=== PATIENT | male | born 1960 | race Caucasian/White ===

== ENCOUNTER 2017-02-27 09:38 | Day surgery (SDC) | payer OTHER ==
[~2017-02-27] VITALS: Ht 182.9 cm; Wt 95.2 kg
[~2017-02-27 09:38] MED LIST: CHOL5000 PO; EXCEDRIN ES; HYDR-3740 PO; Lactated Ringer's 1,000 ML IV ONE; MULT-1074 PO; NAPR220C11 PO
[2017-02-27] MEDS ORDERED: Propofol 10,000 mCg/mL 20 mL Inj ONE (09:39)
[2017-02-27 10:06] VITALS: BP 159/95; PULSE 84; RESP 16; O2SAT 95
[2017-02-27] MEDS ORDERED: Lactated Ringer's 1,000 ML IV SCH (10:49)
[2017-02-27] MEDS ORDERED: MetoCLOpramide 5 mg/mL 2 mL Inj IVPUSH PRN (10:50)
[2017-02-27] MEDS ORDERED: Ondansetron 2 mg/mL 2 mL Inj IVPUSH PRN (10:50)
[2017-02-27 11:18] VITALS: BP 125/69; PULSE 77; RESP 16; O2SAT 94
[2017-02-27 11:28] VITALS: BP 133/72; PULSE 60; RESP 16; O2SAT 97
[2017-02-27 11:38] VITALS: BP 142/78; PULSE 62; RESP 16; O2SAT 99
--- NOTE | 2017-02-27 16:43 | PCM.HPANE ---
Patient Data Surgeon Admitting Provider: Attending Provider:Kamlesh Hernandez MD Primary Care Physician:Mica Gordon MD Other Provider:Lindsay De La Vegaingham Anesthesia Reason for Visit Colon Ca Screening Ht/WT & BMI Height (Feet): 6 Height (Inches): 0 Weight (Kilograms): 95.25 Body Mass Index 28.00 Allergies Coded Allergies: No Known Allergies (Unverified , 02/24/17) Past Anesthesia History Anesthesia History: Denies:: Abnormal Airway, Anesthesia Reactions, Difficult Intubation, Fam Anesthesia Reaction, Fam Malignant Hypertherm, Malignant Hyperthermia Diabetes History Hx Diabetes?: No MRSA MRSA: No Medications Reported Medications Cholecalciferol (Vitamin D3) (Vitamin D3)5,000 Unit Capsule5,000 Unit PO 02/24/17 Hydrocodone-Acetaminophen 10-325 mg 1 Each Tablet1 Tablet PO Q6H PRN For Pain Ref 0 02/24/17 [excedrin es] No Conflict Check 02/24/17 Multivits,Ca,Min/Iron/FA/Lycop (Centrum Men's Tablet)8 Mg Iron-200 Mcg-600 Mcg Tablet1 Each PO DAILY 02/24/17 Naproxen Sodium (Aleve)220 Mg [id number] Mg PO DIRECTED PRN For Pain 02/24/17 History History of ENT Problems?: No HEENT History: Denies:: Abnormal Airway Cataracts Difficult Intubation Dysphagia Glaucoma Hearing Problem Sinus Problem TMJ Denture Type: None Teeth Condition: Within Normal Limits Hx of Heart Problems?: Yes Cardiovascular History: Positive for:: Hypertension Denies:: AICD Abdominal Aortic Aneurism Atrial Fibrillation Cardiac Surgery Chest Pain Congestive Heart Failure Coronary Artery Disease Edema Heart Murmur Irregular Heartbeat Pacemaker Peripheral Vascular Rheumatic Fever Thrombophlebitis Valvular Heart Disease Hx of Respiratory Problem?: No Respiratory History: Denies:: Asthma COPD Chest Surgery Cough Dyspnea Emphysema Hemoptysis Oxygen Administration Pneumonia Pulmonary Embolism Tuberculosis Use of C-PAP Machine Use of Inhalers / NEBS Hx Neurologic Problems?: No Neurological History: Denies:: Alzheimer's Disease CVA Dementia Dizziness Headaches Multiple Sclerosis Parkinson's Disease Peripheral Neuropathy Seizures TIA Hx of GI Problems?: No Gastrointestinal History: Denies:: Cirrhosis Diverticulitis Gall Bladder Disease Gastroesphageal Reflux Gastrointestinal Bleeding Heartburn Hepatitis Hiatal Hernia Liver Disease Rectal Bleeding Hx of Problems?: No Genitourinary History: Denies:: HX of Hemodialysis Kidney Stones Urinary Tract Infection HX of Peritoneal Dialysis: No Male Hx: Denies:: Prostate Problems Scrotal Mass Testicular Surgery Skin History: Denies:: History Skin Disorders? Pressure Ulcers Hx Musculoskeletal Problems?: No Musculoskeletal History: Denies:: Back Injury Degenerative Joint Fibromyalgia Joint Replacement Musculoskeletal Trauma Myasthenia Gravis Osteoarthritis Rheumatoid Arthritis Systemic Lupus Hx of Psycho/Social Problems?: No Psycho Social History: Denies:: Anxiety Bipolar Disorder Hx Depression Suicide Attempt Hx Surgeries?: Yes (HIP, HAND, SKULL, ) Hx Any Other Health Problems?: Yes Hx Diabetes: No Hx Alcohol Use: No Stop/Bang Treated for Sleep Apnea?: No Do You Have a CPAP Machine?: No S-Snoring: Do You Snore Loudly: No T-Tired: feel tired, fatigued: No O-Obsered: Observed not breath: No P-Blood Pressure: treated: Yes B- Body Mass Index > 35 kg/m2: No A- Age over 50: Yes N- Neck Large Circumference: No G- Gender Male: Yes TIA Total Score: 3 Risk Assessment Category Category 1A: Patient has history of documented sleep apnea, and HAS NOT received any narcotic, sedative or anesthesia administration during this stay. Category 1B: Patient has history of documented sleep apnea, and HAS received any narcotic , sedative or anesthesia administration during this stay Category 2: Patient has SUSPECTED Obstructive Sleep Apnea, and HAS received any narcotic , sedative or anesthesia administration during this stay. Category 3: Patient has SUSPECTED Obstructive Sleep Apnea and HAS NOT received narcotic, sedative or anesthesia administration during this stay. Category 4: Outpatient in Procedural Areas with known sleep apnea or who screen positive for High Risk via the STOP/BANG questionnaire. Exam Exam Vital Signs Vital Signs Date Time Temp Pulse Resp B/P Pulse Ox O2 Delivery O2 Flow Rate FiO2 02/27/17 10:06 84 16 159/95 95 Room Air General Appearance: Alert, Oriented X3, Cooperative, No Acute Distress HEENT/AIRWAY: MP 2, Neck Movement (FROM), Mouth Opening (3 FBMO) Lungs: Clear to Auscultation, Normal Air Movement Heart: Exam Unremarkable, Regular Rate/Rhythm, No Murmurs/Rubs/Gallops Plan Impression Patient chart reviewed, patient interviewed and anesthestic plan with risks, benefits, and alternatives discussed, and informed consent obtained. NPO per Anesth. Guidelines: Yes ASA Physical Status: ASA2 Mod Systemic Disease Anesthetic Plan: GA, MAC Bene/Risks/Altern/Consents: Yes HP Complete Prior to Induction: Yes Michel Avila MD Feb 27, 2017 10:49
--- NOTE | 2017-02-27 16:44 | PCM.ANEP1 ---
Post Anesthesia PACU Phase 1 Assessment Vital Signs Vital Signs Date Time Temp Pulse Resp B/P Pulse Ox O2 Delivery O2 Flow Rate FiO2 02/27/17 11:38 62 16 142/78 99 Room Air 02/27/17 11:28 60 16 133/72 97 Room Air 02/27/17 11:18 77 16 125/69 94 Room Air 02/27/17 10:06 84 16 159/95 95 Room Air Anesthetic Administered: GA Level of Alertness: Awake, talking UREÑA's with Equal Strength: Yes Pain: No Nausea or Vomiting: No CV Function & Hydration Stable: No Airway Device: N/A Oxygen Delivery: Room Air Lungs: Clear to Auscultation, Normal Air Movement Dermatome Level: Full Sensation PACU Phase 2 Assessment Complications: No Follow up Care: N/A Patient Instructions Provided: N/A Michel Avila MD Feb 27, 2017 16:44
--- NOTE | 2017-02-27 20:39 | ENDO ---
[address] [address] ENDOSCOPY PROCEDURE PATIENT: ALEJANDRO CONROY : 1960 MR#: [id number] ADMIT: 02/27/2017 JOB ID: [id number] DATE OF SERVICE: 02/27/2017 PRIMARY PROVIDER: Mica Gordon MD. PROCEDURE: Colonoscopy with hot snare polypectomy. INDICATIONS: A 56-year-old male who reports for colon cancer screening. EQUIPMENT: [employer] H [employer] [place]. SEDATION: Monitored anesthesia as provided by Dr. Michel Avila. COMPLICATIONS: None identified. BOWEL PREPARATION: Fair. PROCEDURE IN DETAIL: After the risks and benefits were explained, written and verbal informed consent was obtained. The patient was brought into the endoscopy suite and placed into the left lateral decubitus position. Sedation was achieved using the above-stated medications with the addition of oxygen via nasal cannula. A digital rectal examination was accomplished. No significant pathology appreciated. The scope was introduced into the rectum and advanced under direct visualization to the level of the cecum, as identified by the appendiceal orifice and ileocecal valve. The scope was slowly withdrawn to carefully examine the mucosa for any defects or lesions. Retroflexed views were avoided in the rectum. Multiple direct views were made through the dentate line for exclusion of pathology. The colon was decompressed. The scope removed from the patient who tolerated the procedure well. FINDINGS: The patient had diverticulosis throughout the left colon. In the descending, there was an approximately 6-7 mm sessile polyp removed with hot snare. In the rectum, there were a few classic hyperplastic-appearing polyps. One of the larger ones measuring about 6-7 mm was removed with hot snare. No other pathology was appreciated throughout apart from moderate internal hemorrhoids noted on direct views. ENDOSCOPIC DIAGNOSES: 1. Diverticulosis. 2. Colon polyps. 3. Hemorrhoids. RECOMMENDATIONS: 1. Await histopathology. 2. As long as the rectal polyp removed is returned hyperplastic only, repeat colonoscopy will be suggested for five years' time.
--- NOTE | 2017-03-02 13:11 | PATH ---
SURGICAL PATHOLOGY Attending Physician:Servando Harris CASE STATUS: Signed Out PATIENT NAME: ALEJANDRO CONROY PID: [id number] : 1960 DATE COLLECTED:02/27/2017 21:18 SPECIMEN: 1: Colon, Polyp 2: Rectum, Biopsy CLINICAL HISTORY: 1). DESCENDING POLYP X1 2). RECTAL POLYPS X1 FINAL DIAGNOSIS: 1. Descending Colon, Polyp, Biopsy: Tubular adenoma; negative for high grade dysplasia. 2. Rectum, Polyp, Biopsy: Hyperplastic polyp. ICD10: K63.5 GROSS DESCRIPTION: 1. Received in formalin, labeled with the patient's name and "descend" is one fragment of leigh soft tissue measuring 0.2 x 0.2 x 0.2 cm. The fragment is totally submitted in cassette 1A. 2. Received in formalin, labeled with the patient's name and "rectal" is one fragment of leigh soft tissue measuring 0.3 x 0.2 x 0.2 cm. The fragment is totally submitted in cassette 2A. ([id number]) ICD-9 CODES: CPT CODES: 1: 80715 2: 37082 Electronically Signed Out Melany Tolentino MD [facility] [address], [place] [address] Technical component performed at [facility], [facility] [address], [place], [address]
== END 2017-02-27 23:59 | disposition home or self-care (01) ==
LOC: END 09:38
PROVIDERS: ATTEND Internal Medicine Gastroenterology
DX: Z12.11 Encounter for screening for malignant neoplasm of colon (principal); D12.4 Benign neoplasm of descending colon; K62.1 Rectal polyp; K57.30 Diverticulosis of large intestine without perforation or abscess without bleeding; K64.8 Other hemorrhoids; F41.9 Anxiety disorder, unspecified; F12.90 Cannabis use, unspecified, uncomplicated; F17.210 Nicotine dependence, cigarettes, uncomplicated
CPT/HCPCS: 45385; J7120

== ENCOUNTER → 2017-04-10 | Day surgery (SDC) | payer OTHER ==
[2017-04-10] VITALS (11 sets, daily range): BP systolic 128–163; BP diastolic 60–89; PULSE 45–65; RESP 8–18; O2SAT 93–99
[~2017-04-10] VITALS: Ht 182.9 cm; Wt 90.6 kg
[~2017-04-10] MED LIST changes: +Acetaminophen IV 1,000 mg IV ONE; +Atropine 0.4 mg/mL Inj IVPUSH PRN; +Bupivacaine Liposome 1.3% 20 mL Inj INFILTRATE ONE; +CeFAZolin 2 Gm/50 mL D5W Duplex Bag IV ONE; +CeFAZolin 2 Gm/50 mL D5W IV Premix IV ONE; +EPHEDrine Sulfate 50 mg/mL Inj IVPUSH PRN; +HYDROmorphone 1 mg/mL Inj IVPUSH PRN; +Labetalol 5 mg/mL 20 mL Inj IV PRN; +Lactated Ringer's 1,000 ML IV SCH; +Lactated Ringer's 500 ML IV PRN; +MetoCLOpramide 5 mg/mL 2 mL Inj IVPUSH PRN; +Ondansetron 2 mg/mL 2 mL Inj IVPUSH PRN; +Ondansetron 2 mg/mL 2 mL Inj ONE; +Phenylephrine 10,000 mCg/mL Inj IVPUSH PRN; +Phenylephrine/NS 100 mCg/mL 10 mL Syringe IVPUSH ONE; +Propofol 10,000 mCg/mL 20 mL Inj ONE; +fentaNYL-PF 50 mCg/mL 2 mL Inj ONE
--- NOTE | 2017-04-10 11:49 | PCM.HPANE ---
Patient Data Date of Service: Apr 10, 2017 Surgeon Admitting Provider: Attending Provider:Audrey Davies MD Primary Care Physician:Mica Gordon MD Other Provider:Len De La Vega Anesthesia Reason for Visit Left Renal Coloc Ht/WT & BMI Height (Feet): 6 Height (Inches): 0 Weight (Kilograms): 90.6 Body Mass Index 27.00 Allergies Uncoded Allergies: GIL PEPPER/JALAPENO (Allergy, Severe, VOMITING, 04/10/17) Past Anesthesia History Anesthesia History: Denies:: Abnormal Airway, Anesthesia Reactions, Difficult Intubation, Fam Anesthesia Reaction, Fam Malignant Hypertherm, Malignant Hyperthermia Diabetes History Hx Diabetes?: No MRSA MRSA: No Medications Hypertension Medication: No Home Meds Incl Beta Tye: No Reported Medications Cholecalciferol (Vitamin D3) (Vitamin D3)5,000 Unit Capsule5,000 Unit PO 02/24/17 Hydrocodone-Acetaminophen 10-325 mg 1 Each Tablet1 Tablet PO Q6H PRN For Pain Ref 0 02/24/17 [excedrin es] No Conflict Check 02/24/17 Multivits,Ca,Min/Iron/FA/Lycop (Centrum Men's Tablet)8 Mg Iron-200 Mcg-600 Mcg Tablet1 Each PO DAILY 02/24/17 Naproxen Sodium (Aleve)220 Mg [id number] Mg PO DIRECTED PRN For Pain 02/24/17 History History of ENT Problems?: No HEENT History: Denies:: Abnormal Airway Cataracts Difficult Intubation Dysphagia Hearing Problem Sinus Problem TMJ Denture Type: None Teeth Condition: Tooth Decay Missing Teeth Hx of Heart Problems?: Yes (reports chest tightness with moderate excercise ( e.g. running a mile) that has been present his whole life, htn) Cardiovascular History: Denies:: AICD Abdominal Aortic Aneurism Atrial Fibrillation Cardiac Surgery Chest Pain Congestive Heart Failure Edema Heart Murmur Hypertension Irregular Heartbeat Pacemaker Rheumatic Fever Thrombophlebitis Valvular Heart Disease Hx of Respiratory Problem?: Yes (smoker, 1ppd) Respiratory History: Denies:: Asthma COPD Chest Surgery Cough Dyspnea Emphysema Hemoptysis Oxygen Administration Pneumonia Pulmonary Embolism Tuberculosis Use of C-PAP Machine Hx Neurologic Problems?: No Neurological History: Denies:: Alzheimer's Disease CVA Dementia Dizziness Headaches Multiple Sclerosis Parkinson's Disease Seizures Hx of GI Problems?: No Hx of Problems?: Yes Genitourinary History: Positive for:: Kidney Stones (left stone current admission problem) Denies:: HX of Hemodialysis Urinary Tract Infection HX of Peritoneal Dialysis: No Male Hx: Denies:: Prostate Problems Scrotal Mass Testicular Surgery Skin History: Denies:: History Skin Disorders? Pressure Ulcers Hx Musculoskeletal Problems?: No Musculoskeletal History: Denies:: Back Injury Degenerative Joint Joint Replacement Musculoskeletal Trauma Systemic Lupus Hx of Psycho/Social Problems?: No Psycho Social History: Denies:: Anxiety Bipolar Disorder Hx Depression Suicide Attempt Hx Surgeries?: Yes (HIP, HAND, SKULL, ) Hx Any Other Health Problems?: Yes Hx Diabetes: No Hx Alcohol Use: NoHx Substance Use: Yes (marijuana edibles daily) Smoking Status: Current Every Day Smoker Stop/Bang P-Blood Pressure: treated: No B- Body Mass Index > 35 kg/m2: No A- Age over 50: Yes N- Neck Large Circumference: No G- Gender Male: Yes Risk Assessment Category Category 1A: Patient has history of documented sleep apnea, and HAS NOT received any narcotic, sedative or anesthesia administration during this stay. Category 1B: Patient has history of documented sleep apnea, and HAS received any narcotic , sedative or anesthesia administration during this stay Category 2: Patient has SUSPECTED Obstructive Sleep Apnea, and HAS received any narcotic , sedative or anesthesia administration during this stay. Category 3: Patient has SUSPECTED Obstructive Sleep Apnea and HAS NOT received narcotic, sedative or anesthesia administration during this stay. Category 4: Outpatient in Procedural Areas with known sleep apnea or who screen positive for High Risk via the STOP/BANG questionnaire. Exam Exam Vital Signs Vital Signs Date Time Temp Pulse Resp B/P Pulse Ox O2 Delivery O2 Flow Rate FiO2 04/10/17 11:30 36.5 65 14 163/88 95 Room Air General Appearance: Alert, Oriented X3 HEENT/AIRWAY: MP 1 Lungs: Clear to Auscultation Heart: Regular Rate/Rhythm, Normal S1, Normal S2, No Murmurs/Rubs/Gallops Meds/Labs/Diagnostics Admission Meds Current Medications Lactated Ringer's (Lr) 1,000 ml @ 120 mls/hr Q8H20M ONCE IV Last administered on 04/10/17t 11:32; Start 04/10/17 at 05:00; Stop 04/10/17 at 13:19 Acetaminophen (Tylenol IV) 1,000 mg STK-MED ONCE IV Last administered on t 11:32; Start 04/10/17 at 11:13; Stop 04/10/17 at 11:14; Status DC Plan Impression Patient chart reviewed, patient interviewed and anesthestic plan with risks, benefits, and alternatives discussed, and informed consent obtained. NPO per Anesth. Guidelines: Yes ASA Physical Status: ASA2 Mod Systemic Disease Anesthetic Plan: GA Bene/Risks/Altern/Consents: Yes (discussed possibility that his chest symptoms at high exertion are angina. Given risk factors (htn, smoker) this is very possible. Given low risk surgery and lack of symptoms at 4 METS will proceed. Advised patient and that this be evaluated as outpatient.) HP Complete Prior to Induction: Yes Kurt Bill MD Apr 10, 2017 11:49
[2017-04-10] MEDS: fentaNYL-PF 50 mCg/mL 2 mL Inj IVPUSH PRN ×2 (12:43→12:53)
--- NOTE | 2017-04-10 12:45 | PCM.ANEP1 ---
Post Anesthesia PACU Phase 1 Assessment Date of Service: Apr 10, 2017 Vital Signs Vital Signs Date Time Temp Pulse Resp B/P Pulse Ox O2 Delivery O2 Flow Rate FiO2 04/10/17 12:35 46 8 135/69 98 Simple Mask 8 04/10/17 12:30 47 8 128/69 97 Simple Mask 8 04/10/17 12:25 60 10 128/65 98 Simple Mask 8 04/10/17 12:24 36.1 132/60 04/10/17 11:30 36.5 65 14 163/88 95 Room Air Anesthetic Administered: GA Level of Alertness: Sleepy, easy to arouse Pain: No Nausea or Vomiting: No CV Function & Hydration Stable: Yes Airway Device: Oxygen Delivery: Simple Mask Lungs: Clear to Auscultation PACU Phase 2 Assessment Complications: No Patient Instructions Provided: N/A Kurt Bill MD Apr 10, 2017 12:45
--- NOTE | 2017-04-10 12:56 | DRSVH ---
PROCEDURE: X-RAY KUB ([id number]) INDICATIONS: LEFT RENAL COLIC TECHNIQUE: One view of the abdomen acquired. COMPARISON: [facility], CT, CT KUB, 02/09/2017, 11:41. [facility], CR, KUB, 12/13/2007, 11:42. FINDINGS: Surgical changes and devices: None. Bowel: Bowel gas pattern is normal. Soft tissues: No new suspicious abdominal calcifications, and there likely has been no significant c hange in positioning of the large central renal collecting system calculi identified by CT KUB 7. Several additional small calcifications are seen in the expected region of the lower third collec ting system of the left kidney. Visualized solid organ contours appear normal in size. Bones: No suspicious bony lesions. IMPRESSION: A urinary tract stone in the expected position of the left ureter is not found but large and small calculi previously present on the left within the collecting system both centrally and more peripherally are again seen. Dictated by: Kurt Escobedo M.D. on 04/10/2017 at 12:53 Approved by: Kurt Escobedo M.D. on 04/10/2017 at 12:54
--- NOTE | 2017-04-11 01:25 | OP ---
[address] [address] OPERATIVE REPORT PATIENT: ALEJANDRO CONROY : 1960 MR#: [id number] ADMIT: 04/10/2017 JOB ID: [id number] DATE OF SURGERY: 04/10/2017 PREOPERATIVE DIAGNOSIS(ES): 1. Large left renal stone burden. 2. Left renal colic. 3. Hematuria. 4. History of recurrent nephrolithiasis. POSTOPERATIVE DIAGNOSIS(ES): 1. Large left renal stone burden. 2. Left renal colic. 3. Hematuria. 4. History of recurrent nephrolithiasis. OPERATION PERFORMED: Cystoscopy, left ureteropelvic junction stone manipulation without removal and placement of left ureteral stent (7-British x 22-32 cm multilength. SURGEON: Audrey Davies MD. ANESTHESIOLOGIST: Kurt Bill MD. ANESTHESIA: General. PROCEDURE SUMMARY: The patient was positioned in supine and was administered general anesthesia. He was then repositioned in semi-lithotomy, and lower abdomen, genitalia and groin were prepped and draped in sterile fashion. The 22-British panendoscope was passed to the lower urinary tract with the findings as described above. Next, a 0.35 Glidewire was advanced to the left collecting system under direct and fluoroscopic guidance. Over this, a 7-British x 22-32 cm multilength stent was selected. This was carefully positioned in the left collecting system under direct fluoroscopic guidance in satisfactory position. NO RETRIEVAL LINE WAS LEFT ATTACHED. The bladder was then drained completely and all instrumentation removed. The patient was then repositioned in supine, was awakened, transferred to the [facility], and transferred to recovery in stable condition.
== END | disposition home or self-care (01) ==
LOC: SAS 10:15
PROVIDERS: ATTEND Specialist
DX: N20.0 Calculus of kidney (principal); N23 Unspecified renal colic; R31.9 Hematuria, unspecified; F17.210 Nicotine dependence, cigarettes, uncomplicated; E66.9 Obesity, unspecified; Z68.27 Body mass index [BMI] 27.0-27.9, adult
CPT/HCPCS: 52332; 74000; 76000; C2617; J0131; J0690; J2370; J2405; J2704; J3010; J7120

== ENCOUNTER → 2017-05-04 | Day surgery (SDC) | payer OTHER ==
[2017-05-04] VITALS (7 sets, daily range): BP systolic 130–149; BP diastolic 73–87; PULSE 52–70; RESP 10–17; O2SAT 95–97
[~2017-05-04] VITALS: Ht 182.9 cm; Wt 90.0 kg
[~2017-05-04] MED LIST changes: -Bupivacaine Liposome 1.3% 20 mL Inj INFILTRATE ONE; -CeFAZolin 2 Gm/50 mL D5W Duplex Bag IV ONE; -CeFAZolin 2 Gm/50 mL D5W IV Premix IV ONE; +Dexamethasone 4 mg/mL Inj IVPUSH PRN; +Dexamethasone 4 mg/mL Inj ONE; +Furosemide 10 mg/mL 2 mL Inj IV ONE; +fentaNYL-PF 50 mCg/mL 2 mL Inj IVPUSH PRN; +hydrALAZINE 20 mg/mL Inj IVPUSH PRN
--- NOTE | 2017-05-04 10:30 | PCM.HPANE ---
Patient Data Date of Service: May 04, 2017 Surgeon Admitting Provider: Attending Provider:Audrey Davies MD Primary Care Physician:Mica Gordon MD Other Provider:Len De La Vega Anesthesia Reason for Visit Left Kidney Stone Ht/WT & BMI Height (Feet): 6 Height (Inches): 0.00 Weight (Kilograms): 90.000 Body Mass Index 26.00 Allergies Uncoded Allergies: GIL PEPPER/JALAPENO (Allergy, Severe, VOMITING, 04/10/17) Past Anesthesia History Anesthesia History: Denies:: Abnormal Airway, Anesthesia Reactions, Difficult Intubation, Fam Anesthesia Reaction, Fam Malignant Hypertherm, Malignant Hyperthermia Diabetes History Hx Diabetes?: No MRSA MRSA: No Medications Hypertension Medication: No Home Meds Incl Beta Tye: No Reported Medications Cholecalciferol (Vitamin D3) (Vitamin D3)5,000 Unit Capsule5,000 Unit PO 02/24/17 Hydrocodone-Acetaminophen 10-325 mg 1 Each Tablet1 Tablet PO Q6H PRN For Pain Ref 0 02/24/17 [excedrin es] No Conflict Check 02/24/17 Multivits,Ca,Min/Iron/FA/Lycop (Centrum Men's Tablet)8 Mg Iron-200 Mcg-600 Mcg Tablet1 Each PO DAILY 02/24/17 Naproxen Sodium (Aleve)220 Mg [id number] Mg PO DIRECTED PRN For Pain 02/24/17 History History of ENT Problems?: No HEENT History: Denies:: Abnormal Airway Cataracts Difficult Intubation Dysphagia Hearing Problem Sinus Problem TMJ Denture Type: None Teeth Condition: Tooth Decay Missing Teeth Hx of Heart Problems?: Yes Cardiovascular History: Denies:: AICD Abdominal Aortic Aneurism Atrial Fibrillation Cardiac Surgery Chest Pain Congestive Heart Failure Edema Heart Murmur Hypertension Irregular Heartbeat Pacemaker Rheumatic Fever Thrombophlebitis Valvular Heart Disease Hx of Respiratory Problem?: Yes Respiratory History: Denies:: Asthma COPD Chest Surgery Cough Dyspnea Emphysema Hemoptysis Oxygen Administration Pneumonia Pulmonary Embolism Tuberculosis Use of C-PAP Machine Hx Neurologic Problems?: No Neurological History: Denies:: Alzheimer's Disease CVA Dementia Dizziness Headaches Multiple Sclerosis Parkinson's Disease Seizures Hx of GI Problems?: No Hx of Problems?: Yes Genitourinary History: Positive for:: Kidney Stones (left stone current admission problem/ surgery here 04/10) Denies:: HX of Hemodialysis Urinary Tract Infection HX of Peritoneal Dialysis: No Male Hx: Denies:: Prostate Problems Scrotal Mass Testicular Surgery Skin History: Denies:: History Skin Disorders? Pressure Ulcers Hx Musculoskeletal Problems?: No Musculoskeletal History: Denies:: Back Injury Degenerative Joint Joint Replacement Musculoskeletal Trauma Systemic Lupus Hx of Psycho/Social Problems?: No Psycho Social History: Denies:: Anxiety Bipolar Disorder Hx Depression Suicide Attempt Hx Surgeries?: Yes (HIP, HAND, SKULL, eswl) Hx Any Other Health Problems?: Yes Other History: Denies:: Cancer Hx Diabetes: No Hx Alcohol Use: NoHx Substance Use: Yes (marijuana edibles daily) Smoking Status: Current Every Day Smoker Stop/Bang S-Snoring: Do You Snore Loudly: No T-Tired: feel tired, fatigued: No O-Obsered: Observed not breath: No P-Blood Pressure: treated: No B- Body Mass Index > 35 kg/m2: No A- Age over 50: Yes N- Neck Large Circumference: No G- Gender Male: Yes TIA Total Score: 2 TIA Risk Assessment: Low Risk, <3 Yes Risk Assessment Category Category 1A: Patient has history of documented sleep apnea, and HAS NOT received any narcotic, sedative or anesthesia administration during this stay. Category 1B: Patient has history of documented sleep apnea, and HAS received any narcotic , sedative or anesthesia administration during this stay Category 2: Patient has SUSPECTED Obstructive Sleep Apnea, and HAS received any narcotic , sedative or anesthesia administration during this stay. Category 3: Patient has SUSPECTED Obstructive Sleep Apnea and HAS NOT received narcotic, sedative or anesthesia administration during this stay. Category 4: Outpatient in Procedural Areas with known sleep apnea or who screen positive for High Risk via the STOP/BANG questionnaire. Exam Exam Vital Signs Vital Signs Date Time Temp Pulse Resp B/P Pulse Ox O2 Delivery O2 Flow Rate FiO2 05/04/17 09:48 36.5 70 17 148/85 95 Room Air General Appearance: Alert, Oriented X3, Cooperative, No Acute Distress HEENT/AIRWAY: MP 1 Lungs: Clear to Auscultation, Normal Air Movement Heart: Exam Unremarkable, Regular Rate/Rhythm, No Murmurs/Rubs/Gallops Meds/Labs/Diagnostics Admission Meds Current Medications Lactated Ringer's (Lr) 1,000 ml @ ud STK-MED ONCE IV Last administered on 9/7/ 17at 09:47; Start 05/04/17 at 09:47; Stop 05/04/17 at 09:48; Status DC Plan Impression Patient chart reviewed, patient interviewed and anesthestic plan with risks, benefits, and alternatives discussed, and informed consent obtained. NPO per Anesth. Guidelines: Yes ASA Physical Status: ASA2 Mod Systemic Disease Anesthetic Plan: GA Bene/Risks/Altern/Consents: Yes HP Complete Prior to Induction: Yes Tommy Campbell MD May 04, 2017 10:30
--- NOTE | 2017-05-04 12:59 | PCM.ANEP1 ---
Post Anesthesia PACU Phase 1 Assessment Date of Service: May 04, 2017 Vital Signs 36.4 136/74 50 12 96% RA Anesthetic Administered: GA Level of Alertness: Sleepy, easy to arouse UREÑA's with Equal Strength: Yes Pain: No Nausea or Vomiting: No CV Function & Hydration Stable: Yes Airway Device: Oxygen Delivery: Room Air Lungs: Clear to Auscultation, Normal Air Movement PACU Phase 2 Assessment Complications: No Follow up Care: N/A Patient Instructions Provided: N/A Tommy Campbell MD May 04, 2017 12:59
--- NOTE | 2017-05-04 14:17 | OP ---
[address] [address] OPERATIVE REPORT PATIENT: ALEJANDRO CONROY : 1960 MR#: [id number] ADMIT: 05/04/2017 JOB ID: [id number] DATE OF SURGERY: 05/04/2017 SURGEON: Audrey Davies MD PREOPERATIVE DIAGNOSIS(ES): 1. Large left renal stone burden. 2. Left renal colic. 3. Hematuria. 4. Indwelling left ureteral stent. POSTOPERATIVE DIAGNOSIS(ES): 1. Large left renal stone burden. 2. Left renal colic. 3. Hematuria. 4. Indwelling left ureteral stent. OPERATION PERFORMED: Staged left ESWL (maximal power level of 8.0 x2000 shocks). ANESTHESIOLOGIST: Tommy Campbell MD ANESTHESIA: General. PROCEDURE SUMMARY: The patient was positioned supine on the lithotripsy gurney and the above-described stone was localized in the X, Y and Z plane. Lithotripsy was then commenced at minimal power level and gradually increased to maximum power level. The stone and its fragments were relocalized numerous times throughout the case using C-arm radiography. The procedure was then terminated. The patient was awakened, transferred to the gurney and transferred to the recovery area awake in stable condition. The patient tolerated the procedure well.
== END | disposition home or self-care (01) ==
LOC: SAS 09:14
PROVIDERS: ATTEND Specialist
DX: N20.0 Calculus of kidney (principal); R31.9 Hematuria, unspecified; F17.210 Nicotine dependence, cigarettes, uncomplicated
CPT/HCPCS: 50590; J0131; J1100; J1940; J2370; J2405; J2704; J3010; J7120